=== PATIENT | female | born 1955 | race Caucasian/White ===

== ENCOUNTER 2019-03-16 10:32 | Day surgery (SDC) | payer OTHER ==
[2019-03-16] MEDS ORDERED: FENTAnyl 50 MCG/ML VIAL (14:29)
[2019-03-16] MEDS ORDERED: MIDAZOLAM 1 MG/ML 2 ML INJ (14:29)
== END 2019-03-16 13:00 | disposition home or self-care (01) ==
LOC: GIL 13:00
DX: K92.1 Melena (principal); K64.8 Other hemorrhoids; E11.9 Type 2 diabetes mellitus without complications
CPT/HCPCS: 45378; 82962